=== PATIENT | male | born 1950 | race African-American/Black ===

== ENCOUNTER 2017-03-13 18:47 | Emergency (ER) | payer MEDICAID, OTHER ==
[~2017-03-13] VITALS: Ht 170.2 cm; Wt 65.0 kg
[2017-03-13] MEDS ORDERED: LORAZEPAM 1MG TABLET PO ONE (21:00)
[2017-03-13] MEDS ORDERED: IBUPROFEN 800MG TABLET PO ONE (21:00)
[2017-03-13 21:56] VITALS: BP 127/74
== END 2017-03-14 00:05 | disposition left against medical advice (07) ==
LOC: ER 18:47
DX: M54.2 Cervicalgia (principal); M54.5 Low back pain; R20.0 Anesthesia of skin; F17.200 Nicotine dependence, unspecified, uncomplicated; V43.52XA Car driver injured in collision with other type car in traffic accident, initial encounter; Y93.89 Activity, other specified; Y92.89 Other specified places as the place of occurrence of the external cause; Y99.8 Other external cause status
CPT/HCPCS: 99283

== ENCOUNTER 2021-09-02 12:13 | Emergency (ER) | payer MEDICARE, MEDICAID ==
[~2021-09-02] VITALS: Ht 180.3 cm; Wt 75.0 kg
[2021-09-02 12:28] VITALS: BP 158/86
== END 2021-09-02 14:24 | disposition home or self-care (01) ==
LOC: ER 12:13
DX: R20.0 Anesthesia of skin (principal); M54.9 Dorsalgia, unspecified; V49.49XA Driver injured in collision with other motor vehicles in traffic accident, initial encounter; Y93.89 Activity, other specified; Y92.89 Other specified places as the place of occurrence of the external cause; Y99.8 Other external cause status
CPT/HCPCS: 99283